=== PATIENT | female | born 1980 | race Caucasian/White ===

== ENCOUNTER 2019-01-11 14:38 | Emergency (ER) | payer MEDICAID ==
--- NOTE | 2019-01-11 17:22 | EDM.PDOC ---
ED HPI GENERAL MEDICAL PROBLEM - General Chief Complaint: General Stated Complaint: TROUBLE BREATHING Time Seen by Provider: 01/11/19 17:20 Source of Information: Reports: Patient History Limitations: Reports: No Limitations - History of Present Illness INITIAL COMMENTS - FREE TEXT/NARRATIVE: pt arrived with ahistory of having sob. She had discomfort when she took a deep breath in the xyphoid area. Pt is not having pain at this point. She did feel sob. She is not having alot of pain at this time. . Onset: Today, Sudden Duration: Hour(s): Location: Reports: Chest, Abdomen Associated Symptoms: Reports: Chest Pain Middle Chest Pain Score (Numeric/FACES): 4 - Related Data Allergies Allergy/AdvReac Type Severity Reaction Status Date / Time No Known Allergies Allergy Verified 01/11/19 15:10 Home Meds: Home Meds NK [No Known Home Meds] 01/11/19 [History] Past Medical History Cardiovascular History: Reports: Heart Murmur, Other (See Below) Other Cardiovascular History: cardiac arrest JUICE WEIGHER History: Reports: Other JUICE WEIGHER History: aminotic embolism Musculoskeletal History: Reports: Fracture Other Musculoskeletal History: arm Endocrine/Metabolic History: Reports: Obesity/BMI 30+ Other Endocrine/Metabolic History: polycystic ovarian syndrome Hematologic History: Reports: Blood Transfusion(s) - Infectious Disease History Infectious Disease History: Reports: Chicken Pox - Past Surgical History HEENT Surgical History: Reports: Myringotomy w Tube(s), Tonsillectomy GI Surgical History: Reports: Appendectomy Female Surgical History: Reports: Section Social & Family History - Tobacco Use Smoking Status *Q: Never Smoker - Caffeine Use Caffeine Use: Reports: None - Recreational Drug Use Recreational Drug Use: Yes Recreational Drug Type: Reports: Marijuana/Hashish Recreational Drug Use Frequency: Rarely ED ROS GENERAL - Review of Systems Review Of Systems: See Below Constitutional: Reports: No Symptoms HEENT: Reports: No Symptoms Respiratory: Reports: Other (pain in the middle of his chest, hurt when he took a deep breath. ) Cardiovascular: Reports: Chest Pain Endocrine: Reports: No Symptoms GI/Abdominal: Reports: No Symptoms : Reports: No Symptoms Musculoskeletal: Reports: No Symptoms ED EXAM, GENERAL - Physical Exam Exam: See Below Free Text/Narrative:: pt arrived with pain in epigastric area. It hurt to take a deep breath in the lower chest. Exam Limited By: No Limitations General Appearance: Alert, Anxious, Moderate Distress Ears: Normal TMs Nose: Normal Inspection Throat/Mouth: Normal Inspection Head: Atraumatic Neck: Normal Inspection Respiratory/Chest: No Respiratory Distress, Other (pt has good o2 sats. ) Cardiovascular: Regular Rate, Rhythm GI/Abdominal: Soft, Non-Tender (Female) Exam: Deferred Rectal (Female) Exam: Deferred Back Exam: Normal Inspection Extremities: Normal Inspection Course - Vital Signs Last Recorded V/S: Last Vital Signs Temp 36.9 C 01/11/19 15:11 Pulse 82 01/11/19 18:59 Resp 17 01/11/19 18:59 BP 121/64 01/11/19 18:59 Pulse Ox 99 01/11/19 18:59 - Orders/Labs/Meds Labs: Laboratory Tests 01/11/19 01/11/19 01/11/19 Range/Units 18:29 18:29 18:29 WBC 10.4 (4.5-11.0) K/uL RBC 4.59 (3.30-5.50) M/uL Hgb 13.3 (12.0-15.0) g/dL Hct 40.5 (36.0-48.0) % MCV 88 (80-98) fL MCH 29 (27-31) pg MCHC 33 (32-36) % Plt Count 220 (150-400) K/uL Neut % (Auto) 59 (36-66) % Lymph % (Auto) 33 (24-44) % Rogers % (Auto) 7 H (2-6) % Eos % (Auto) 1 L (2-4) % Baso % (Auto) 0 (0-1) % D-Dimer, Quantitative (0.0-400.0) ng/mL Sodium 139 L (140-148) mmol/L Potassium 3.7 (3.6-5.2) mmol/L Chloride 104 (100-108) mmol/L Carbon Dioxide 26 (21-32) mmol/L Anion Gap 12.7 (5.0-14.0) mmol/L BUN 13 (7-18) mg/dL Creatinine 0.7 (0.6-1.0) mg/dL Est Cr Clr Drug Dosing 99.01 mL/min Estimated GFR (MDRD) > 60 (>60) Glucose 92 (74-106) mg/dL Calcium 8.7 (8.5-10.1) mg/dL Total Bilirubin 0.2 (0.2-1.0) mg/dL AST 16 (15-37) U/L ALT 31 (12-78) U/L Alkaline Phosphatase 99 (46-116) U/L C-Reactive Protein 0.49 H (0.0-0.3) mg/dL Total Protein 7.2 (6.4-8.2) g/dL Albumin 3.3 L (3.4-5.0) g/dL Globulin 3.9 H (2.3-3.5) g/dL Albumin/Globulin Ratio 0.9 L (1.2-2.2) 01/11/19 Range/Units 18:30 WBC (4.5-11.0) K/uL RBC (3.30-5.50) M/uL Hgb (12.0-15.0) g/dL Hct (36.0-48.0) % MCV (80-98) fL MCH (27-31) pg MCHC (32-36) % Plt Count (150-400) K/uL Neut % (Auto) (36-66) % Lymph % (Auto) (24-44) % Rogers % (Auto) (2-6) % Eos % (Auto) (2-4) % Baso % (Auto) (0-1) % D-Dimer, Quantitative 294 (0.0-400.0) ng/mL Sodium (140-148) mmol/L Potassium (3.6-5.2) mmol/L Chloride (100-108) mmol/L Carbon Dioxide (21-32) mmol/L Anion Gap (5.0-14.0) mmol/L BUN (7-18) mg/dL Creatinine (0.6-1.0) mg/dL Est Cr Clr Drug Dosing mL/min Estimated GFR (MDRD) (>60) Glucose (74-106) mg/dL Calcium (8.5-10.1) mg/dL Total Bilirubin (0.2-1.0) mg/dL AST (15-37) U/L ALT (12-78) U/L Alkaline Phosphatase (46-116) U/L C-Reactive Protein (0.0-0.3) mg/dL Total Protein (6.4-8.2) g/dL Albumin (3.4-5.0) g/dL Globulin (2.3-3.5) g/dL Albumin/Globulin Ratio (1.2-2.2) Meds: Medications Discontinued Medications Generic Name Dose Route Start Last Admin Trade Name Freq PRN Reason Stop Dose Admin Ketorolac Tromethamine 60 mg 01/11/19 18:53 01/11/19 19:02 Toradol IM 01/11/19 18:54 60 mg ONETIME ONE Administration - Re-Assessments/Exams Free Text/Narrative Re-Assessment/Exam: 01/11/19 19:05 pt had a normal ddimer. Her wbc was normal. Her chest xray was clear. Departure - Departure Time of Disposition: 19:05 Disposition: Home, Self-Care 01 Condition: Fair Clinical Impression: Pleurisy - Discharge Information Referrals: PCP,None [Primary Care Provider] - Forms: ED Department Discharge Care Plan Goals: tylenol alternating with motrin 600mg q6h for pain, push fluids.
--- NOTE | 2019-01-11 17:53 | CRLCR ---
INDICATION: SOB, pain with breathing TECHNIQUE: Chest 2 views. COMPARISON: 11/18/16 FINDINGS: Cardiovascular and mediastinum: Heart size and vasculature are normal in caliber and appearance. Mediastinum is within normal limits. Lungs and pleural spaces: Lungs are clear. No sign of infiltrate or mass. No sign of pleural effusion. No pneumothorax. Bones and soft tissues: No significant findings. IMPRESSION: Unremarkable chest. Dictated by: James Abreu MD @ 01/11/2019 17:51:03 (Electronically Signed)
[2019-01-11] MEDS ORDERED: Ketorolac 60 MG/2 ML SDV IM ONE (18:53)
[2019-01-11 19:02] VITALS: BP 121/64
== END 2019-01-11 19:16 | disposition home or self-care (01) ==
LOC: JP.ED 14:38
DX: R09.1 Pleurisy (principal)
CPT/HCPCS: 36415; 71046; 80053; 85025; 85379; 86140; 96372; 99285; J1885